=== PATIENT | male | born 1950 | race Caucasian/White ===

== ENCOUNTER 2017-08-10 04:00 | Emergency (ER) | payer OTHER ==
[~2017-08-10] VITALS: Ht 167.6 cm; Wt 68.0 kg
[~2017-08-10 04:00] MED LIST: ACETAMINOPHEN325 M1 PO; ADULT LOW DOSE81 MG PO; APAP500; ARICEPT 5 MG TAB5 MG PO; ASA81BEC PO; BACTRIM DS TAB1 EACH PO; BUSPIRONE HCL10 MG PO; CELEXA 20 MG TA20 M1 PO; CELEXA10 MG PO; CLONAZEPAM 1 MG1 M1 PO; COLACE100 MG PO; COMPAZINE5 MG PO; DEPAKOTE 250MG250 M1 PO; DEPAKOTE ER500 MG PO; DILANTIN 100 M100 MG PO; DILANTIN100 MG PO; DYAZIDE 37.5-21 EACH PO; IBUPROFEN 400400 M1 PO; IBUPROFEN 600600 M1 PO; KEPPRA 500 MG500 M1 PO; KEPPRA 500 MG500 MG PO; LACTULOSE10 GM/152 PO; MOM PO; MULTIVITAMINS; MULTIVITAMINS PO; NEPHROCAPS SOFT1 CAP; NEURONTIN300 MG PO; SEROQUEL 25 MG25 M1 PO; VICODIN 5-5001 EACH PO; ZANTAC 150MG T150 M1 PO; ZOCOR40 MG PO
[2017-08-10] MEDS ORDERED: VITAMIN D2000 UNIT PO (04:13)
[2017-08-10] MEDS ORDERED: XIFAXAN550 M1 PO (04:14)
[2017-08-10 05:24] VITALS: BP 120/54
== END 2017-08-10 05:41 ==
LOC: ER 04:00
DX: G40.909 Epilepsy, unspecified, not intractable, without status epilepticus (principal)